=== PATIENT | male | born 1945 | race Caucasian/White ===

== ENCOUNTER → 2024-06-14 | Outpatient (CLI) | payer MEDICARE ==
--- NOTE | 2024-06-14 14:56 | US ---
EXAMINATION TYPE: US kidneys/renal and bladder DATE OF EXAM: 06/14/2024 COMPARISON: NONE CLINICAL INDICATION: Male, 78 years old with history of N13.30 UNSPECIFIED HYDRONEPHROSIS; hydro TECHNIQUE: Grayscale imaging of the bilateral kidneys and urinary bladder: FINDINGS: EXAM MEASUREMENTS: Right Kidney: 10.4 x 4.1 x 3.9 cm Left Kidney: 9.7 x 4.0 x 4.5 cm Right Kidney: mild hydronephrosis seen Left Kidney: moderate hydronephrosis seen. Echogenic focus seen sup pole measuring 0.9 x 1.2 x 0.6cm Bladder: wnl Bilateral Jets seen: no There is no evidence for hydronephrosis at this point in time. No nephrolithiasis is seen. No yolette s are identified. The urinary bladder is anechoic. IMPRESSION: 1. Moderate left hydronephrosis and mild right correlate for bladder outlet obstruction. 2. Left nonobstructing calculi noted. [facility], , 06/14/2024 2:54 PM
== END | disposition home or self-care (01) ==
LOC: RADUSWWP 14:12
PROVIDERS: ATTEND Urology
DX: N13.2 Hydronephrosis with renal and ureteral calculous obstruction (principal)
CPT/HCPCS: 76770

== ENCOUNTER → 2024-09-10 | Outpatient (CLI) | payer MEDICARE ==
--- NOTE | 2024-09-10 10:08 | CTL ---
EXAMINATION TYPE: CT Low Dose Lung DATE OF EXAM: 09/10/2024 10:01 AM COMPARISON: None. CLINICAL INDICATION: Male, 79 years old with history of Z12.2 Enctr Scrn for malig neop, Z87.891, For steve smoker, 1.5 ppd x 55 years, quit 2022, History of tobacco use. TECHNIQUE: Low Dose CT Lung Screening, Low dose computed tomography scan was performed through the est at 1 millimeter thick sections and reconstructed images in the coronal plane at 1 mm thick sectio ns. IV CONTRAST USED: None. SCREENING VISIT: First visit CT DLP: 68 mGycm, Automated exposure control for dose reduction was used. CT CTDI: 1.9 mGy FINDINGS: CT DIAGNOSTIC QUALITY: Satisfactory LUNG NODULES: Not presentLeft lung: no nodules identified.Right lung: no nodules identified. LUNGS: COPD: Severity: Mild Fibrosis: Severity:None Lymph nodes: None Other findings: None RIGHT PLEURAL SPACE: Effusion: None Calcification: None Thickening: None Pneumothorax: None LEFT PLEURAL SPACE: Effusion: None Calcification: None Thickening: None Pneumothorax: None HEART: * Size within normal limits. * No significant coronary artery calcifications. OTHER FINDINGS: Upper abdomen: No significant abnormality Bony thorax: Degenerative changes Supraclavicular region: No significant abnormalityOther: No significant abnormalityI IMPRESSION: 1. No clinically significant pulmonary nodules. 2. Mild emphysema. CT LUNG RAD AND CT CHEST RECOMMENDATION: Lung-Rad 1 Negative: Continue annual screening with LDCT in 12 months. S Modifier (other clinically significant findings): [facility], , 09/10/2024 10:05 AM
== END | disposition home or self-care (01) ==
LOC: RADCTMAIN 09:05
PROVIDERS: ATTEND Internal Medicine
DX: Z12.2 Encounter for screening for malignant neoplasm of respiratory organs (principal); J43.9 Emphysema, unspecified; Z87.891 Personal history of nicotine dependence
CPT/HCPCS: 71271

== ENCOUNTER → 2024-10-26 | Outpatient (CLI) | payer MEDICARE | LOC: CPPFTMAIN 15:11 | PROVIDERS: ATTEND Internal Medicine | DX: J43.9 Emphysema, unspecified (principal); F17.200 Nicotine dependence, unspecified, uncomplicated | CPT/HCPCS: 94060; 94726; 94729 ==